=== PATIENT | female | born 1995 | race Caucasian/White ===

== ENCOUNTER 2018-12-23 11:19 | Emergency (ER) | payer SELFPAY ==
[~2018-12-23] VITALS: Ht 165.1 cm; Wt 102.5 kg
[2018-12-23 11:38] VITALS: BP 142/75
--- NOTE | 2018-12-23 11:38 | NUR ---
PT AMBULATES TO BED 9
--- NOTE | 2018-12-23 11:40 | NUR ---
23 Y F BIB FAMILY C/O THROAT PAIN 07/28, NON PROD. COUGH, BILATERAL EAR PAIN X 3 DAYS. +REDNESS, +SWELLING IN THROAT, -N/V/D, -FEVER. PATIENT STATES PAIN IS AGGRAVATED BY SWALLOWING DID NOT RECIEVE THE FLU VACCINE THIS YEAR BED IS DOWN, LOCKED, BED RAIL X 1, ERMD NOTIFIED OFR PATIENT STATUS DENIES HX,DENIES MEDS
[2018-12-23 12:43] VITALS: BP 137/71
--- NOTE | 2018-12-23 12:45 | NUR ---
Patient discharged with v/s stable. Written and verbal after care instructions given and explained. Patient alert, oriented and verbalized understanding of instructions. Ambulatory with steady gait. All questions addressed prior to discharge. ID band removed. Patient advised to follow up with PMD. Rx of BORIS RILEY given. Patient educated on indication of medication including possible reaction and side effects. Opportunity to ask questions provided and answered.
== END 2018-12-23 12:43 | disposition home or self-care (01) ==
LOC: MED 11:19
DX: J02.8 Acute pharyngitis due to other specified organisms (principal); B97.89 Other viral agents as the cause of diseases classified elsewhere
CPT/HCPCS: 99283

== ENCOUNTER 2024-02-19 20:43 | Emergency (ER) | payer OTHER ==
[~2024-02-19] VITALS: Ht 165.1 cm; Wt 113.4 kg
[~2024-02-19 20:43] MED LIST: NAPR-337 PO
[2024-02-19 20:45] VITALS: BP 150/69; PULSE 77; RESP 17; TEMP 97.9; O2SAT 98
[2024-02-19 21:08] VITALS: O2SAT 99
[2024-02-19 21:13] VITALS: BP 126/73; PULSE 79; RESP 10; TEMP 98.5; O2SAT 96
[2024-02-19 21:40] LABS: BASOPHILS % (AUTO) 0.5 % (0.0-2.0); EOSINOPHILS # (AUTO) 0.1 K/uL (0-0.4); EOSINOPHILS % (AUTO) 1.3 % (0.0-4.0); HEMATOCRIT 41.7 % (36-48); HEMOGLOBIN 14.2 g/dL (12.0-16.0); LYMPHOCYTES # (AUTO) 4.9 K/uL (2.5-16.5); MEAN CORPUSCULAR HEMOGLOBIN 30 pg (27-31); MEAN CORPUSCULAR HGB CONC 34 g/dL (33-37); MEAN CORPUSCULAR VOLUME 87.4 fL (80-94); MONOCYTES # (AUTO) 0.7 K/uL (0.8-1.0); MONOCYTES % (AUTO) 6.4 % (1.7-9.3); NEUTROPHILS # (AUTO) 4.7 K/uL (1.8-7.7); NEUTROPHILS % (AUTO) 44.8 % (42.2-75.2); PLATELET COUNT (AUTO) 356 K/uL (140-450); RED BLOOD CELL COUNT(AUTO) 4.78 MIL/uL (4.20-5.40); RED CELL DISTRIBUTION WIDTH 13.2 % (11.6-13.7); WHITE BLOOD COUNT (AUTO) 10.5 K/uL (4.8-10.8)
[2024-02-19 21:53] LABS: ANION GAP 13.1 (8-16); CARBON DIOXIDE 27.3 mmol/L (21-32); POTASSIUM 3.4 mmol/L (3.5-5.1)
[2024-02-19] MEDS ORDERED: HYDR25CA1 PO (23:03)
== END 2024-02-19 23:10 | disposition home or self-care (01) ==
LOC: MED 20:43
DX: F41.9 Anxiety disorder, unspecified (principal); R06.02 Shortness of breath; R07.9 Chest pain, unspecified; Z79.899 Other long term (current) drug therapy
CPT/HCPCS: 36415; 71045; 80048; 81025; 84484; 85025; 93005; 99285; Q0092

== ENCOUNTER 2024-03-17 14:47 | Emergency (ER) | payer OTHER ==
[~2024-03-17] VITALS: Ht 165.1 cm; Wt 113.4 kg
[~2024-03-17 14:47] MED LIST changes: +HYDR25CA1 PO
[2024-03-17 15:18] VITALS: BP 122/77; PULSE 70; RESP 18; TEMP 98.1; O2SAT 97
[2024-03-17] MEDS: KETOROLAC 30 MG/ML VIAL IM ONE (16:33)
[2024-03-17] MEDS: ONDANSETRON 4 MG ODT PO ONE (16:33)
[2024-03-17] MEDS ORDERED: ACET-10509 PO (16:54)
[2024-03-17] MEDS ORDERED: ONDA-188 PO (16:54)
[2024-03-17] MEDS ORDERED: IBUP-2213 PO (16:54)
== END 2024-03-17 17:07 | disposition home or self-care (01) ==
LOC: MED 14:47
DX: H92.01 Otalgia, right ear (principal); G44.209 Tension-type headache, unspecified, not intractable; J02.9 Acute pharyngitis, unspecified; Z79.1 Long term (current) use of non-steroidal anti-inflammatories (NSAID); Z79.899 Other long term (current) drug therapy
CPT/HCPCS: 96372; 99283; J1885; Q0162

== ENCOUNTER 2024-08-05 00:55 | Emergency (ER) | payer OTHER ==
[~2024-08-05] VITALS: Ht 165.1 cm; Wt 96.6 kg
[~2024-08-05 00:55] MED LIST changes: +ACET500T99 PO; +IBUP-2213 PO; +ONDA-188 PO
[2024-08-05 01:00] VITALS: BP 117/59; PULSE 69; RESP 20; TEMP 98.2; O2SAT 97
[2024-08-05] MEDS: SODIUM PHOSPHATE 118 ML ENEM RC ONE (03:17)
[2024-08-05] MEDS: DICYCLOMINE 20 MG/2 ML VIAL IM ONE (03:30)
[2024-08-05] MEDS ORDERED: NA P RC (03:46)
[2024-08-05 04:10] VITALS: BP 117/59; PULSE 69; RESP 20; TEMP 98.2; O2SAT 97
== END 2024-08-05 04:01 | disposition home or self-care (01) ==
LOC: MED 00:55
DX: K59.00 Constipation, unspecified (principal); Z79.899 Other long term (current) drug therapy
CPT/HCPCS: 74018; 81025; 99284; J0500